=== PATIENT | female | born 1995 | race Two or more races ===

== ENCOUNTER 2023-07-24 16:51 | Emergency (ER) | payer MEDICAID ==
[~2023-07-24] VITALS: Ht 162.6 cm; Wt 63.6 kg
[2023-07-24 16:51] VITALS: BP 122/68; PULSE 89; RESP 16; O2SAT 99
[2023-07-24] MEDS: ACETAMINOPHEN 500 MG TAB PO ONE (18:00)
[2023-07-24] MEDS ORDERED: ONDANSETRON HCL 4 MG/2 ML VIAL IM ONE ×2 (19:15→21:30)
[2023-07-24] MEDS ORDERED: ACETAMINOPHEN 500 MG TAB PO ONE (20:45)
== END 2023-07-24 21:42 | disposition left against medical advice (07) ==
LOC: ER 16:51
DX: O26.892 Other specified pregnancy related conditions, second trimester (principal); S09.8XXA Other specified injuries of head, initial encounter; Z3A.20 20 weeks gestation of pregnancy; W07.XXXA Fall from chair, initial encounter; Y93.89 Activity, other specified; Y92.89 Other specified places as the place of occurrence of the external cause; Y99.8 Other external cause status
CPT/HCPCS: 96372; 99283; J2405